=== PATIENT | male | born 1960 | race Caucasian/White ===

== ENCOUNTER 2021-03-12 04:48 | Emergency (ER) | payer MEDICAID, OTHER ==
[~2021-03-12] VITALS: Ht 180.3 cm; Wt 106.6 kg
[2021-03-12 07:41] LABS: Basophils # (auto) 0 10 ^3/uL (0-0.2); Basophils % (auto) 0.4 % (0.0-2.0); Eosinophils # (auto) 0.2 10 ^3/uL (0-0.8); Eosinophils % (auto) 2.6 % (0.0-7.0); Hematocrit 44.1 % (41.0-53.0); Lymphocytes # (auto) 2.4 10 ^3/uL (0.4-5.4); Lymphocytes % (auto) 30.9 % (10.0-50.0); Mean Corpuscular Hemoglobin 31.6 pg (28.0-32.0); Mean Corpuscular Volume 93.1 fL (80.0-100.0); Monocytes # (auto) 0.8 10 ^3/uL (0-1.3); Neutrophils # (auto) 4.4 10 ^3/uL (1.6-8.6); Neutrophils % (auto) 56.1 % (37.0-80.0); Nucleated Red Blood Cells % 0.1 %; Red Blood Cells 4.74 10^6/uL (4.5-5.90); Red Cell Distribution Width 13.7 % (11.8-14.3); White Blood Cell 7.9 10^3/uL (4.4-10.8)
[2021-03-12 08:02] LABS: Albumin 3.7 g/dL (3.4-5.0); Anion Gap 5 (5-15); BUN/Creatinine Ratio 12.2; Blood Urea Nitrogen 14 mg/dL (7-18); Carbon Dioxide 29 mmol/L (21-32); Chloride 107 mmol/L (98-107); GFR African American 83 mL/min; GFR Non-African American 69 mL/min; Glucose 107 mg/dL (74-106); Magnesium 2.4 mg/dL (1.6-2.6); Potassium 4.1 mmol/L (3.5-5.1); Sodium 141 mmol/L (136-145)
[2021-03-12 08:06] LABS: INR 1.05 (0.9-1.15); Partial Thromboplastin Time 24.1 sec (23.0-31.2)
[2021-03-12 08:14] LABS: Alanine Aminotransferase 88 U/L (16-61); Alkaline Phosphatase 90 U/L (45-117); Aspartate Aminotransferase 41 U/L (15-37); Bilirubin, Total 0.4 mg/dL (0.2-1.0); Total Protein 7.5 g/dL (6.4-8.2)
[2021-03-12 08:50] LABS: Urine Bacteria FEW /hpf (None Seen); Urine Blood Negative /uL (Negative); Urine Mucus FEW (None Seen); Urine Specific Gravity 1.029 (1.001-1.035); Urine WBC 2 /hpf (0 - 3)
[2021-03-12 09:02] VITALS: BP 123/96
== END 2021-03-12 09:14 | disposition home or self-care (01) ==
LOC: ER 04:48
DX: J44.9 Chronic obstructive pulmonary disease, unspecified (principal); F17.210 Nicotine dependence, cigarettes, uncomplicated
CPT/HCPCS: 36415; 71045; 80053; 81001; 83735; 83880; 84484; 85025; 85379; 85610; 85730; 93005

== ENCOUNTER 2021-08-29 18:06 | Emergency (ER) | payer MEDICAID ==
[~2021-08-29] VITALS: Ht 180.3 cm; Wt 108.9 kg
[2021-08-29 18:06] VITALS: BP 100/70
== END 2021-08-29 19:04 | disposition left against medical advice (07) ==
LOC: EDUNIT# 18:06 → EDBD 18:06 → ER 18:06
DX: R06.02 Shortness of breath (principal); J44.9 Chronic obstructive pulmonary disease, unspecified; Z53.21 Procedure and treatment not carried out due to patient leaving prior to being seen by health care provider

== ENCOUNTER 2021-09-12 14:42 | Emergency (ER) | payer MEDICAID ==
[~2021-09-12] VITALS: Ht 180.3 cm; Wt 104.3 kg
[2021-09-12 14:45] VITALS: BP 113/71
[2021-09-12] MEDS ORDERED: DexAMETHasone SOD PHOS 10MG/1ML VIAL INJ IM ONE (15:15)
[2021-09-12 15:50] LABS: Basophils # (auto) 0 10 ^3/uL (0-0.2); Basophils % (auto) 0.5 % (0.0-2.0); Eosinophils # (auto) 0.1 10 ^3/uL (0-0.8); Eosinophils % (auto) 0.9 % (0.0-7.0); Hematocrit 36.6 % (41.0-53.0); Hemoglobin 12.6 g/dL (13.5-17.5); Lymphocytes # (auto) 1.4 10 ^3/uL (0.4-5.4); Lymphocytes % (auto) 17.1 % (10.0-50.0); Mean Corpuscular Hemoglobin 33.5 pg (28.0-32.0); Mean Corpuscular Hgb Conc. 34.5 g/dL (32.0-36.0); Monocytes # (auto) 0.7 10 ^3/uL (0-1.3); Monocytes % (auto) 8.2 % (0.0-12.0); Neutrophils # (auto) 6.2 10 ^3/uL (1.6-8.6); Neutrophils % (auto) 73.3 % (37.0-80.0); Red Blood Cells 3.77 10^6/uL (4.5-5.90); Red Cell Distribution Width 14.3 % (11.8-14.3); White Blood Cell 8.4 10^3/uL (4.4-10.8)
[2021-09-12 15:58] LABS: Calcium 8.1 mg/dL (8.5-10.1)
[2021-09-12 16:04] LABS: BUN/Creatinine Ratio 13.3; Bilirubin, Total 0.6 mg/dL (0.2-1.0); Total Protein 6.8 g/dL (6.4-8.2)
[2021-09-12 16:45] LABS: Potassium 2.9 mmol/L (3.5-5.1)
[2021-09-12] MEDS ORDERED: MAGNESIUM OXIDE 400 MG TAB PO ONE (17:00)
[2021-09-12] MEDS ORDERED: POTASSIUM EFFERVESENT TAB 25 MEQ PO ONE (17:00)
[2021-09-12] MEDS ORDERED: IPRATROPIUM BROM 0.5 MG/2.5ML INH SOL NEB ONE (18:30)
[2021-09-12] MEDS ORDERED: ALBUTEROL SULF 2.5 MG/0.5ML(0.5%) NEB SOLN NEB ONE (18:30)
== END 2021-09-12 23:05 | disposition left against medical advice (07) ==
LOC: ER 14:42
DX: J44.9 Chronic obstructive pulmonary disease, unspecified (principal); E87.6 Hypokalemia; F17.210 Nicotine dependence, cigarettes, uncomplicated; Z20.822 Contact with and (suspected) exposure to COVID-19
CPT/HCPCS: 36415; 71046; 80053; 83880; 84484; 85025; 87426; 93005; 94640; 99285; J7644

== ENCOUNTER 2021-11-07 16:02 | Inpatient (IN) | payer MEDICAID ==
[~2021-11-07] VITALS: Ht 180.3 cm; Wt 108.5 kg
[2021-11-07] MEDS ORDERED: ALBUTEROL SULF 2.5 MG/0.5ML(0.5%) NEB SOLN NEB ONE (16:30)
[2021-11-07] MEDS ORDERED: methylPREDNISolone SOD SUCC 125 MG/2 ML VL IV ONE (16:30)
[2021-11-07] MEDS ORDERED: IPRATROPIUM BROM 0.5 MG/2.5ML INH SOL NEB ONE (16:30)
[2021-11-07 16:56] LABS: Basophils # (auto) 0.1 10 ^3/uL (0-0.2); Basophils % (auto) 1.1 % (0.0-2.0); Eosinophils # (auto) 0.2 10 ^3/uL (0-0.8); Eosinophils % (auto) 1.8 % (0.0-7.0); Hematocrit 44.5 % (41.0-53.0); Lymphocytes # (auto) 3.1 10 ^3/uL (0.4-5.4); Lymphocytes % (auto) 24.7 % (10.0-50.0); Mean Corpuscular Hemoglobin 33.8 pg (28.0-32.0); Mean Corpuscular Hgb Conc. 33.8 g/dL (32.0-36.0); Mean Corpuscular Volume 100.1 fL (80.0-100.0); Monocytes # (auto) 0.7 10 ^3/uL (0-1.3); Monocytes % (auto) 5.7 % (0.0-12.0); Neutrophils # (auto) 8.3 10 ^3/uL (1.6-8.6); Neutrophils % (auto) 66.7 % (37.0-80.0); Nucleated Red Blood Cells % 0.1 %; Red Blood Cells 4.44 10^6/uL (4.5-5.90); Red Cell Distribution Width 14.3 % (11.8-14.3); White Blood Cell 12.5 10^3/uL (4.4-10.8)
[2021-11-07 17:15] LABS: Albumin 3.4 g/dL (3.4-5.0); BUN/Creatinine Ratio 10.9; Calcium 9.2 mg/dL (8.5-10.1); Potassium 3.7 mmol/L (3.5-5.1)
[2021-11-07 17:20] LABS: Bilirubin, Total 0.4 mg/dL (0.2-1.0); Total Protein 7.1 g/dL (6.4-8.2)
[2021-11-07 17:35] LABS: INR 1.12 (0.9-1.15)
[2021-11-07 17:49] LABS: Partial Thromboplastin Time 24.4 sec (23.6-33.0)
[2021-11-07] MEDS ORDERED: SODIUM CHLORIDE 0.9% 2,000 ML IV ONE (18:00)
[2021-11-07] MEDS ORDERED: ONDANSETRON HCL 4 MG/2 ML VIAL IV PRN (19:15)
[2021-11-07] MEDS ORDERED: MORPHINE SULFATE INJECTION 2 MG/ML SYRG IV PRN (19:15)
[2021-11-07] MEDS ORDERED: DOCUSATE SOD 100 MG CAP PO PRN (19:15)
[2021-11-07] MEDS ORDERED: DEXTROSE (50%) 50ML SYRG IV PRN (19:15)
[2021-11-07] MEDS ORDERED: HYDROcodone-ACET 5/325MG TAB PO PRN (19:15)
[2021-11-07] MEDS ORDERED: SODIUM CHLORIDE 0.9% 1,000 ML IV ONE (19:15)
[2021-11-07] MEDS ORDERED: ACETAMINOPHEN 325 MG TAB PO PRN (19:15)
[2021-11-07] MEDS ORDERED: MORPHINE SULFATE 4 MG/ML SYR/VIAL IV PRN (19:15)
[2021-11-07] MEDS ORDERED: NITROGLYCERIN 0.4 MG SL TAB SL PRN (19:15)
[2021-11-07 19:30] VITALS: BP 127/74
[2021-11-07] MEDS: AZITHROMYCIN 500MG/ 250ML 250 ML IV SCH (20:22)
[2021-11-07 22:00] VITALS: BP 131/82
[2021-11-07] MEDS: ACCU-CHEK COMFORT CURVE STRIP VI SCH (22:00)
[2021-11-07] MEDS: IPRATROPIUM BROM 0.5 MG/2.5ML INH SOL NEB SCH (23:09)
[2021-11-07] MEDS: BUDESONIDE (INHALATION) 0.5 MG/2 ML NEB NEB SCH (23:09)
[2021-11-07] MEDS: InsuLIN REG 1unit/0.01ml Soln (100units/ml) SC SCH (23:13)
[2021-11-08] MEDS: IPRATROPIUM BROM 0.5 MG/2.5ML INH SOL NEB SCH ×7 (00:30→21:59)
[2021-11-08 05:00] VITALS: BP 118/76
[2021-11-08 05:56] LABS: Basophils # (auto) 0 10 ^3/uL (0-0.2); Basophils % (auto) 0.2 % (0.0-2.0); Eosinophils # (auto) 0 10 ^3/uL (0-0.8); Eosinophils % (auto) 0.1 % (0.0-7.0); Hematocrit 42.5 % (41.0-53.0); Hemoglobin 14.5 g/dL (13.5-17.5); Lymphocytes % (auto) 7.1 % (10.0-50.0); Mean Corpuscular Hemoglobin 33.9 pg (28.0-32.0); Mean Corpuscular Hgb Conc. 34.1 g/dL (32.0-36.0); Mean Corpuscular Volume 99.5 fL (80.0-100.0); Monocytes # (auto) 0.3 10 ^3/uL (0-1.3); Monocytes % (auto) 2.3 % (0.0-12.0); Neutrophils # (auto) 12.7 10 ^3/uL (1.6-8.6); Neutrophils % (auto) 90.3 % (37.0-80.0); Nucleated Red Blood Cells % 0.1 %; Red Blood Cells 4.27 10^6/uL (4.5-5.90); Red Cell Distribution Width 14.4 % (11.8-14.3); White Blood Cell 14.1 10^3/uL (4.4-10.8)
[2021-11-08 06:01] LABS: Urine WBC None Seen /hpf (0 - 3)
[2021-11-08 06:15] LABS: Albumin 3.1 g/dL (3.4-5.0); Calcium 8.3 mg/dL (8.5-10.1); Potassium 4.9 mmol/L (3.5-5.1)
[2021-11-08 06:17] LABS: BUN/Creatinine Ratio 12.9
[2021-11-08 06:22] LABS: Bilirubin, Total 0.5 mg/dL (0.2-1.0); Total Protein 6.6 g/dL (6.4-8.2)
[2021-11-08] MEDS: ACCU-CHEK COMFORT CURVE STRIP VI SCH ×4 (06:32→21:27)
[2021-11-08 06:33] LABS: Urine Bacteria NONE SEEN /hpf (None Seen); Urine Blood Negative /uL (Negative)
[2021-11-08] MEDS: InsuLIN REG 1unit/0.01ml Soln (100units/ml) SC SCH ×4 (06:54→21:26)
[2021-11-08] MEDS ORDERED: HYDR12.56 PO (07:46)
[2021-11-08] MEDS ORDERED: ROSU20TA14 PO (07:46)
[2021-11-08] MEDS ORDERED: METF-370 PO (07:46)
[2021-11-08] MEDS ORDERED: APIX5TAB PO (07:46)
[2021-11-08] MEDS ORDERED: BUSP7.5T8 PO (07:46)
[2021-11-08] MEDS ORDERED: VARE1TAB PO (07:46)
[2021-11-08] MEDS ORDERED: IBUP800T26 PO (07:46)
[2021-11-08 09:00] VITALS: BP 113/72
[2021-11-08] MEDS: PANTOPRAZOLE 40 MG/10 ML VIAL INJ IV SCH (09:19)
[2021-11-08] MEDS: BUDESONIDE (INHALATION) 0.5 MG/2 ML NEB NEB SCH ×2 (10:00→18:06)
[2021-11-08] MEDS ORDERED: ENOXAPARIN SOD 40 MG/0.4 ML SYRINGE SC SCH (10:00)
[2021-11-08 13:00] VITALS: BP 117/80
[2021-11-08 16:32] VITALS: BP 110/64
[2021-11-08] MEDS: metFORMIN HYDROCHLORIDE 500 MG TAB PO SCH (18:19)
[2021-11-08] MEDS: busPIRone HCL 10 MG TAB PO SCH (21:26)
[2021-11-08] MEDS: AZITHROMYCIN 500MG/ 250ML 250 ML IV SCH (21:26)
[2021-11-08] MEDS: APIXABAN 5 MG TAB PO SCH (21:26)
[2021-11-08 22:00] VITALS: BP 109/77
[2021-11-09] MEDS: IPRATROPIUM BROM 0.5 MG/2.5ML INH SOL NEB SCH ×5 (01:55→19:11)
[2021-11-09 05:00] VITALS: BP 109/73
[2021-11-09] MEDS: BUDESONIDE (INHALATION) 0.5 MG/2 ML NEB NEB SCH ×2 (05:41→19:11)
[2021-11-09] MEDS: busPIRone HCL 10 MG TAB PO SCH ×2 (06:32→13:34)
[2021-11-09] MEDS: metFORMIN HYDROCHLORIDE 500 MG TAB PO SCH ×2 (06:32→17:40)
[2021-11-09] MEDS: InsuLIN REG 1unit/0.01ml Soln (100units/ml) SC SCH ×3 (06:32→17:00)
[2021-11-09] MEDS: ACCU-CHEK COMFORT CURVE STRIP VI SCH ×3 (06:32→17:15)
[2021-11-09 08:00] VITALS: BP 111/65
[2021-11-09] MEDS: APIXABAN 5 MG TAB PO SCH (09:21)
[2021-11-09] MEDS: PANTOPRAZOLE 40 MG/10 ML VIAL INJ IV SCH (09:21)
[2021-11-09] MEDS ORDERED: HCTZ 25 MG TAB PO SCH (10:00)
[2021-11-09 12:00] VITALS: BP 116/74
[2021-11-09 16:00] VITALS: BP 116/72
[2021-11-09] MEDS ORDERED: ATORVASTATIN 20 MG TAB PO SCH (22:00)
== END 2021-11-09 19:38 | disposition home or self-care (01) | DRG 140 ==
LOC: ER 16:02 → EDBD 16:02 → TELE 19:03 → TELE-WESTW 21:36
PROVIDERS: ADMIT Nurse Practitioner; ATTEND Nurse Practitioner
DX: J44.1 Chronic obstructive pulmonary disease with (acute) exacerbation (principal); J96.01 Acute respiratory failure with hypoxia; N17.9 Acute kidney failure, unspecified; E11.649 Type 2 diabetes mellitus with hypoglycemia without coma; I10 Essential (primary) hypertension; Z20.822 Contact with and (suspected) exposure to COVID-19; F17.210 Nicotine dependence, cigarettes, uncomplicated; E11.9 Type 2 diabetes mellitus without complications; E78.5 Hyperlipidemia, unspecified
CPT/HCPCS: 36415; 70450; 70486; 71045; 80053; 81001; 82962; 83880; 84484; 85025; 85379; 85610; 85730; 93005; 94640; 96361; 96374; 99291; C9113; G0378; J1815